=== PATIENT | female | born 1995 | race Two or more races ===

== ENCOUNTER → 2024-03-13 | Outpatient (CLI) | payer OTHER, SELFPAY ==
--- NOTE | 2024-03-13 10:53 | XR_ITS ---
Examination: Fingers, left hand third digit 3 views Technique: AP, oblique, lateral views left hand third digit 3 views. Exam date and time: March 13, 2024 1206 hours INDICATIONS: Injury to the third digit left hand 4 days ago with pain FINDINGS: No acute fracture No dislocation No foreign body IMPRESSION: No acute fracture If symptoms persist, repeat this study without the splint material
== END | disposition home or self-care (01) ==
PROVIDERS: Referring Provider Physician Assistant; Visit Provider Physician Assistant
DX: S67.193A Crushing injury of left middle finger, initial encounter (principal); X58.XXXA Exposure to other specified factors, initial encounter
CPT/HCPCS: 73140